=== PATIENT | female | born 1990 | race Asian ===

== ENCOUNTER → 2016-11-10 | Outpatient (CLI) | payer OTHER ==
[~2016-11-10] MED LIST: MRC50 PO; NORGTAB34 PO; POLY335019 PO
== END | disposition home or self-care (01) ==
LOC: C.PAPS 14:27
PROVIDERS: ATTEND Obstetrics & Gynecology
DX: Z12.4 Encounter for screening for malignant neoplasm of cervix (principal)

== ENCOUNTER → 2016-11-10 | Outpatient (CLI) | payer OTHER ==
[2016-11-16 03:24] LABS: CHLAMYDIA TRACH RNA*** NOT DETECTED (NOT DETECTED); GC (NEIS GONORRHOEAE)RNA** NOT DETECTED (NOT DETECTED)
== END | disposition home or self-care (01) ==
LOC: C.LABSPEC 13:49
PROVIDERS: ATTEND Obstetrics & Gynecology
DX: Z01.419 Encounter for gynecological examination (general) (routine) without abnormal findings (principal)

== ENCOUNTER 2017-01-18 15:59 | Emergency (ER) | payer OTHER ==
[~2017-01-18] VITALS: Ht 170.2 cm; Wt 82.1 kg
[2017-01-18 16:03] VITALS: TEMP 36.8; Ht 170.2 cm; Wt 82.1 kg
[2017-01-18] MEDS ORDERED: SODIUM CHLORIDE 0.9% 1000ML 1,000 ML IV STA (16:37)
[2017-01-18] MEDS ORDERED: ONDANSETRON INJ 2 MG/ML 2 ML VIAL IV STA (16:37)
[2017-01-18] MEDS ORDERED: OPTIRAY 320 IV PRN (16:45)
[2017-01-18 16:58] LABS: BASO % 0.2 %; BASO ABS # 0.02 K/uL (0-0.2); COMPLETE YES; HEMATOCRIT 36.4 % (37-47); IG% 0.2 %; LYMPH % 36.3 %; LYMPH ABS # 3.82 K/uL (1.2-3.4); MEAN CELL VOLUME 83.3 fL (80-100); MEAN CORPUSCULAR HEMOGLOBIN 27.2 pg (25-34); MEAN CORPUSCULAR HGB CONC 32.7 g/dl (32-36); MEAN PLATELET VOLUME 10.3 fL (7.4-10.4); MONO % 3.6 %; NEUT % 58.7 %; PLATELET COUNT 252 K/uL (130-400); RED BLOOD COUNT 4.37 M/uL (4.2-5.4); WHITE BLOOD COUNT 10.53 K/uL (4.8-10.8)
--- NOTE | 2017-01-18 16:58 | DIAGNOSTIC IMAGING REPORT ---
CHEST ONE VIEW PORTABLE CLINICAL HISTORY: RUQ pain, nausea, +[place] pain COMPARISON STUDY: No previous studies for comparison. FINDINGS: The bones soft tissues and hemidiaphragms are normal. The cardiomediastinal silhouette is normal. The lungs are clear. The pulmonary vasculature is normal. IMPRESSION: Negative chest. Electronically signed by: Papo Lewis M.D. 01/18/2017 4:57 PM Dictated Date/Time: 01/18/2017 4:57 PM
[2017-01-18 17:15] LABS: BUN/CREATININE RATIO 13.1 (10-20); CALCIUM 8.5 mg/dl (8.5-10.1); CREATININE 0.9 mg/dl (0.60-1.20); POTASSIUM 3.8 mmol/L (3.5-5.1)
[2017-01-18 17:18] LABS: ALB/GLOB RATIO 0.7 (0.9-2)
[2017-01-18 17:40] LABS: URINE APPEARANCE CLEAR (CLEAR); URINE BILIRUBIN NEG (NEG); URINE COLOR YELLOW; URINE NITRITE NEG (NEG); URINE PH 6.5 (4.5-7.5); URINE SPECIFIC GRAVITY 1.015 (1.000-1.030); UROBILINOGEN NEG (NEG); ZZUR CULT IF INDIC CLEAN CATCH NO
[2017-01-18 17:47] LABS: MANUAL MICROSCOPIC REQUIRED? NO; REVIEW REQ? NO
--- NOTE | 2017-01-18 17:56 | DIAGNOSTIC IMAGING REPORT ---
ABDOMINAL ULTRASOUND, RIGHT UPPER QUADRANT HISTORY: Right upper quadrant pain. Positive Spear's. COMPARISON: CT of the abdomen and pelvis February 09, 2015. FINDINGS: The liver is sonographically normal. The pancreas was obscured by overlying bowel gas. There is no biliary ductal dilatation. The gallbladder is normal. No gallstones are identified. There is no right hydronephrosis. IMPRESSION: 1. No significant abnormality identified within the right upper quadrant. 2. Obscured pancreas due to overlying bowel gas. Electronically signed by: Tony Le M.D. 01/18/2017 5:55 PM Dictated Date/Time: 01/18/2017 5:54 PM
--- NOTE | 2017-01-18 20:48 | DIAGNOSTIC IMAGING REPORT ---
CT OF THE ABDOMEN AND PELVIS WITH CONTRAST CLINICAL HISTORY: Right upper quadrant pain, nausea and positive Spear's. COMPARISON STUDY: CT of the abdomen and pelvis February 09, 2015 and right upper quadrant ultrasound performed earlier today. TECHNIQUE: Following IV administration of 115 mL of Optiray-320, axial images of the abdomen and pelvis were obtained from the lung bases to the proximal femurs. Images were reviewed in the axial, sagittal, and coronal planes. IV contrast was administered without complication. Oral contrast was administered. CT DOSE: 373.87 mGy.cm FINDINGS: Lung bases are clear. No pneumatosis, free air or portal venous gas is present. The liver, spleen, adrenal glands, kidneys and pancreas are normal. There is no peripancreatic or pericholecystic infiltration. There is no biliary or pancreatic ductal dilatation. There is no hydronephrosis. The appendix is normal. The caliber and wall thickness of small and large bowel are normal. Mild bladder wall thickening is similar to exam of February 09, 2015 and likely due to underdistention. Skeletal structures are unremarkable. IMPRESSION: No acute process within the abdomen or pelvis. Electronically signed by: Tony Le M.D. 01/18/2017 8:47 PM Dictated Date/Time: 01/18/2017 8:00 PM
--- NOTE | 2017-01-18 21:33 | EMERGENCY ROOM VISIT NOTE ---
History First contact with patient: 16:25 Chief Complaint: ABDOMINAL PAIN Stated Complaint: ABDOMINAL PAIN Nursing Triage Summary: Pt reports abdominal pain began approx 2 weeks ago, has hx of Crohns. Pt reports pain has gotten increasingly worse over the last 2 days in the RUQ and mid abdomen. Pt reports diarrhea 2-3x daily (somewhat normal d/t Crohns hx) and constant nausea along with the pain. History of Present Illness The patient is a 26 year old female who presents to the Emergency Room via private vehicle with complaints of "abdominal pain". The patient states she's been experiencing right upper quadrant pain for the past few days. There is associated nausea and diarrhea. She does have a history of Crohn's disease. She states that the right upper quadrant pain has been in the epigastric and right upper quadrant region for the past 1-2 weeks, however the past 2 days it is constant in the right upper quadrant. She states that with her Crohn's, she usually experiences pain in the left side and believes that this is different. She takes Remicade for the Crohn's. She states that food will help settle her stomach. She rates the right upper quadrant pain as a 5-6/10. There is associated nausea, and diarrhea. She states the diarrhea is relatively usual for her considering her diagnosis of Crohn's. She denies any history of blood clots, chest pain, shortness of breath, history of pancreatitis, chance of , blood in the diarrhea. She also has admitted to increased urinary frequency and dysuria over the past 2 days. She states she had a recent OB appointment and tested negative for sexually transmitted infections. She has had pressure in the chest with lots of burping and gas. There is a decreased appetite. Review of Systems A complete 10-point Review of Systems was discussed with the patient, with pertinent positives and negatives listed in the History of Present Illness. All remaining Review of Systems questions can be considered negative unless otherwise specified. Past Medical/Surgical History Crohn's disease, colonoscopy, kidney stone removal Family History Diabetes, blood pressure, cancer, gallbladder disease, kidney disease or stones , seizures. Social History Smoking Status: Never Smoker Social History: Patient lives with her roommate, denies tobacco use and admits to drinking 1-2 alcohol products per week. Current/Historical Medications Scheduled Norgestimate-Ethinyl Estradiol (Trinessa), 1 TAB PO HS Allergies Coded Allergies: No Known Allergies (Unverified , 01/18/17) Physical Exam Vital Signs Date Time Temp Pulse Resp B/P Pulse Ox O2 Delivery O2 Flow Rate FiO2 01/18/17 22:06 73 14 140/79 96 01/18/17 20:52 75 16 136/87 98 Room Air 01/18/17 19:35 81 16 156/103 96 Room Air 01/18/17 18:17 84 16 153/90 100 Room Air 01/18/17 17:10 91 16 153/86 99 Room Air 01/18/17 16:03 36.8 98 20 154/99 98 Room Air Physical Exam VITAL SIGNS - Vital signs and nursing notes were reviewed. Afebrile, hypertensive at 154/99, non-tachycardic and is saturating well on room air at 98 %. GENERAL - 26-year-old female appearing her stated age who is in no acute distress. She is nontoxic in appearance. Communicates well with provider and answers questions appropriately. SKIN - Without rashes. No petechial rashes. HEAD - NC/AT. EYES - Sclera anicteric. Palpebral conjunctiva pink and moist with no injection noted. EARS - No deformities of external structures noted on gross examination bilaterally. NOSE - Midline and without cyanosis. No epistaxis or purulent drainage noted. Septum midline without deviation or septal hematoma noted. MOUTH/OROPHARYNX - Without perioral cyanosis. Buccal mucosa pink and moist and without leukoplakia. Tongue midline with equal elevation of palate bilaterally. No tonsillar hypertrophy, erythema, or exudates noted. Good dentition noted. NECK - Neck with FROM. Supple to palpation. No lymphadenopathy noted. No nuchal rigidity. LUNGS - Chest wall symmetric without accessory muscle use, intercostals retractions, or central cyanosis. Normal vesicular breath sounds CTA B/L. No wheezes, rales, or rhonchi appreciated. CARDIAC - RRR with S1/S2. No murmur, rubs, or gallops appreciated. ABDOMEN - Abdominal contour without pulsations or visible masses. BS normoactive all four quadrants. There is right upper quadrant tenderness with positive Spear sign. No other tenderness elicited. No palpable masses, hepatosplenomegaly, or ascites noted. EXTREMITIES - No clubbing or peripheral cyanosis. No pretibial edema present. +5 /5 strength noted in UE/LE bilaterally. Patient respectfully declined pelvic exam. Medical Decision & Procedures ER Provider Diagnostic Interpretation: CHEST ONE VIEW PORTABLE CLINICAL HISTORY: RUQ pain, nausea, +[place] pain COMPARISON STUDY: No previous studies for comparison. FINDINGS: The bones soft tissues and hemidiaphragms are normal. The cardiomediastinal silhouette is normal. The lungs are clear. The pulmonary vasculature is normal. IMPRESSION: Negative chest. CT OF THE ABDOMEN AND PELVIS WITH CONTRAST CLINICAL HISTORY: Right upper quadrant pain, nausea and positive Spear's. COMPARISON STUDY: CT of the abdomen and pelvis February 09, 2015 and right upper quadrant ultrasound performed earlier today. TECHNIQUE: Following IV administration of 115 mL of Optiray-320, axial images of the abdomen and pelvis were obtained from the lung bases to the proximal femurs. Images were reviewed in the axial, sagittal, and coronal planes. IV contrast was administered without complication. Oral contrast was administered. CT DOSE: 373.87 mGy.cm FINDINGS: Lung bases are clear. No pneumatosis, free air or portal venous gas is present. The liver, spleen, adrenal glands, kidneys and pancreas are normal. There is no peripancreatic or pericholecystic infiltration. There is no biliary or pancreatic ductal dilatation. There is no hydronephrosis. The appendix is normal. The caliber and wall thickness of small and large bowel are normal. Mild bladder wall thickening is similar to exam of February 09, 2015 and likely due to underdistention. Skeletal structures are unremarkable. IMPRESSION: No acute process within the abdomen or pelvis. Electronically signed by: Tony Le M.D. 01/18/2017 8:47 PM Dictated Date/Time: 01/18/2017 8:00 PM ABDOMINAL ULTRASOUND, RIGHT UPPER QUADRANT HISTORY: Right upper quadrant pain. Positive Spear's. COMPARISON: CT of the abdomen and pelvis February 09, 2015. FINDINGS: The liver is sonographically normal. The pancreas was obscured by overlying bowel gas. There is no biliary ductal dilatation. The gallbladder is normal. No gallstones are identified. There is no right hydronephrosis. IMPRESSION: 1. No significant abnormality identified within the right upper quadrant. 2. Obscured pancreas due to overlying bowel gas. Electronically signed by: Tony Le M.D. 01/18/2017 5:55 PM Dictated Date/Time: 01/18/2017 5:54 PM Laboratory Results 01/18/17 16:45 Red Blood Count 4.37, Mean Corpuscular Volume 83.3, Mean Corpuscular Hemoglobin 27.2, Mean Corpuscular Hemoglobin Concent 32.7, Mean Platelet Volume 10.3, Neutrophils (%) (Auto) 58.7, Lymphocytes (%) (Auto) 36.3, Monocytes (%) (Auto) 3.6, Eosinophils (%) (Auto) 1.0, Basophils (%) (Auto) 0.2, Neutrophils # (Auto) 6.18, Lymphocytes # (Auto) 3.82, Monocytes # (Auto) 0.38, Eosinophils # (Auto) 0.11, Basophils # (Auto) 0.02 01/18/17 16:45 Test 01/18/17 16:45 01/18/17 17:10 White Blood Count 10.53 K/uL (4.8-10.8) Red Blood Count 4.37 M/uL (4.2-5.4) Hemoglobin 11.9 g/dL (12.0-16.0) Hematocrit 36.4 % (37-47) Mean Corpuscular Volume 83.3 fL (80-100) Mean Corpuscular Hemoglobin 27.2 pg (25-34) Mean Corpuscular Hemoglobin Concent 32.7 g/dl (32-36) Platelet Count 252 K/uL (130-400) Mean Platelet Volume 10.3 fL (7.4-10.4) Neutrophils (%) (Auto) 58.7 % Lymphocytes (%) (Auto) 36.3 % Monocytes (%) (Auto) 3.6 % Eosinophils (%) (Auto) 1.0 % Basophils (%) (Auto) 0.2 % Neutrophils # (Auto) 6.18 K/uL (1.4-6.5) Lymphocytes # (Auto) 3.82 K/uL (1.2-3.4) Monocytes # (Auto) 0.38 K/uL (0.11-0.59) Eosinophils # (Auto) 0.11 K/uL (0-0.5) Basophils # (Auto) 0.02 K/uL (0-0.2) RDW Standard Deviation 43.6 fL (36.4-46.3) RDW Coefficient of Variation 14.3 % (11.5-14.5) Immature Granulocyte % (Auto) 0.2 % Immature Granulocyte # (Auto) 0.02 K/uL (0.00-0.02) D-Dimer < 190 ug/L FEU (0-500) Anion Gap 8.0 mmol/L (3-11) Est Creatinine Clear Calc Drug Dose 105.3 ml/min Estimated GFR () 103.0 Estimated GFR (Non- 88.9 BUN/Creatinine Ratio 13.1 (10-20) Calcium Level 8.5 mg/dl (8.5-10.1) Total Bilirubin 0.2 mg/dl (0.2-1) Aspartate Amino Transf (AST/SGOT) 17 U/L (15-37) Alanine Aminotransferase (ALT/SGPT) 23 U/L (12-78) Alkaline Phosphatase 70 U/L (45-117) Troponin I < 0.015 ng/ml (0-0.045) Total Protein 7.4 gm/dl (6.4-8.2) Albumin 3.1 gm/dl (3.4-5.0) Globulin 4.3 gm/dl (2.5-4.0) Albumin/Globulin Ratio 0.7 (0.9-2) Amylase Level 58 U/L (25-115) Lipase 152 U/L (73-393) Urine Color YELLOW Urine Appearance CLEAR (CLEAR) Urine pH 6.5 (4.5-7.5) Urine Specific [place] 1.015 (1.000-1.030) Urine Protein NEG (NEG) Urine Glucose (UA) 3+ (NEG) Urine Ketones NEG (NEG) Urine Occult Blood NEG (NEG) Urine Nitrite NEG (NEG) Urine Bilirubin NEG (NEG) Urine Urobilinogen NEG (NEG) Urine Leukocyte Esterase NEG (NEG) Medications Administered Medications (Trade) Dose Ordered Sig/John Route Start Time Stop Time Status Last Admin Dose Admin Sodium Chloride (Nss 1000ml) 1,000 ml @ 999 mls/hr Q1H1M STAT IV 01/18/17 16:37 01/18/17 17:37 DC 01/18/17 17:10 999 MLS/HR Ondansetron HCl (Zofran Inj) 4 mg NOW STAT IV 01/18/17 16:37 01/18/17 16:40 DC 01/18/17 17:10 4 MG Medical Decision Patient was seen and evaluated as above. After obtaining a thorough history and physical examination the above workup was initiated. IV access was obtained. Imaging focused around right upper quadrant. Chest x-ray was obtained to rule out basilar pneumonia causing potential diaphragmatic irritation on the right. This was negative. Right upper quadrant ultrasound was obtained and was negative. Physical exam did yield a positive Spear sign. Suspicion is still high for gallbladder etiology. CBC reveals a leukocytosis , there is a slight anemia. D-dimer negative. CMP reveals no slight abnormality. There is random glucose elevation at 201. Troponin negative. Albumin and globulin was slight abnormalities. Amylase and lipase within normal limits. Urine unremarkable for infection, there is 3+ glucose. Point-of -care urine was negative. Urine is unremarkable for acute infection. There is evidence of 3+ glucose however. Urine test was negative. She does not waning for pain, and was provided with 1 L of normal saline for hydration as well as Zofran for nausea. She was reassessed multiple times throughout her stay. There appears to be no acute process at this time. An EKG as well as troponin and d-dimer were obtained after right upper quadrant ultrasound was negative. This was to assess for any potential cardiac or pulmonary emergent component. EKG reveals normal sinus rhythm, rate of 79 bpm without ectopy or ischemic change. There is no previous for comparison of the study. I do suspect that the patient should still have additional workup such as a HIDA scan in the outpatient setting for the right upper quadrant pain. She noted that she does not have a primary care doctor therefore I did have our housing case manager talk with the patient and help to set this up. They're to schedule an appointment in the near future for this patient. She is to follow- up with her upper quadrant pain as well as for the elevated glucose readings. Patient does not have an established diagnosis of diabetes. She does note that her father does have diabetes. The patient was very receptive to today's findings, was educated upon worrisome symptoms which to return, had questions prior to discharge, and was discharged home in good condition. In evaluation treatment this patient following differential diagnoses were entertained: Pneumonia, pulmonary embolism, myocardial infarction, gallbladder disease, cholecystitis, choledocholithiasis, ascending cholangitis, bowel obstruction, bowel perforation, among others. Impression Primary Impression: Right upper quadrant abdominal pain Additional Impressions: Anemia Elevated glucose level Departure Information Dispostion Home / Self-Care Condition GOOD Referrals No Doctor, Assigned (PCP) Patient Instructions My [facility] Additional Instructions You have been treated in the Emergency Department your Abdominal Pain. Laboratory results and imaging studies have ruled out any emergent causes for your abdominal pain which would warrant admission or surgery. Please continue your regular medications. It is recommended he follow-up with a family doctor in the near future for recheck of your abdominal pain. Is also recommended to follow up regarding the elevated blood sugar. Our housing case manager have assisted in helping you obtain a family doctor. If you have worsening abdominal pain or persistent symptoms please return. It is recommended that with your family doctor you may require a HIDA scan to further evaluate the gallbladder. For pain control, you can use the following [id number] medicines (if >12 yo): - Regular strength (325mg/tab) Tylenol (acetaminophen) 2 tabs every 4-6 hours as needed. Do not exceed 12 tablets in a 24 hour period. Avoid taking more than 4 grams (4000 mg) of Tylenol per day. This includes any other sources of acetaminophen you may take on a regular basis. - Regular strength (200 mg/tab) Advil (ibuprofen) 1-2 tabs every 4-6 hours as needed. Do not exceed a dose of 3200 mg per day. Drink plenty of water and stay well hydrated. As with any trip to the Emergency Department, you should follow-up with your Primary Care Provider from today's visit. Return to the emergency department if your symptoms persist despite treatment plan outlined above or if the following symptoms occur: increased fevers, chills , worsening nausea/vomiting, blood in your stool or urine. Please return to emergency department with any new/concerning symptoms. Problem Qualifiers
[2017-01-18 22:06] VITALS: BP 140/79; PULSE 73; O2SAT 96
== END 2017-01-18 22:07 | disposition home or self-care (01) ==
LOC: C.EDB 15:59 → C.EDA 22:07
DX: R10.11 Right upper quadrant pain (principal); D64.9 Anemia, unspecified; R73.09 Other abnormal glucose; K50.90 Crohn's disease, unspecified, without complications; Z87.442 Personal history of urinary calculi; Z98.890 Other specified postprocedural states; Z83.3 Family history of diabetes mellitus; Z82.0 Family history of epilepsy and other diseases of the nervous system

== ENCOUNTER → 2017-01-24 | Outpatient (CLI) | payer OTHER ==
[~2017-01-24] MED LIST changes: -MRC50 PO; -POLY335019 PO
--- NOTE | 2017-01-24 14:16 | DIAGNOSTIC IMAGING REPORT ---
NUCLEAR MEDICINE HEPATOBILIARY SCAN CLINICAL HISTORY: Right upper quadrant tenderness. COMPARISON: CT of the abdomen and pelvis and right upper quadrant ultrasound January 18, 2017. TECHNIQUE: 5.4 mCi of technetium 99m Choletec IV was injected at 1:00 PM on January 24, 2017. Immediately following injection, imaging of the abdomen was carried out for 60 minutes in the anterior projection. FINDINGS: Hepatic uptake of radiotracer is prompt and homogeneous. Activity is first identified with thin the common bile duct and small bowel at 10 minutes. Gallbladder activity is first noted at 45 minutes. IMPRESSION: Normal hepatobiliary scan. No evidence of acute cholecystitis. Electronically signed by: Tony Le M.D. 01/24/2017 2:13 PM Dictated Date/Time: 01/24/2017 2:12 PM
== END | disposition home or self-care (01) ==
LOC: C.NUCL 12:30
PROVIDERS: ATTEND Nurse Practitioner Adult Health
DX: R10.811 Right upper quadrant abdominal tenderness (principal)